=== PATIENT | female | born 1990 | race African-American/Black ===

== ENCOUNTER 2017-06-26 23:54 | Emergency (ER) | payer OTHER ==
[2017-06-27 00:36] LABS: URINE SOURCE CLEAN CATCH
[2017-06-27 00:39] LABS: URINE APPEARANCE CLOUDY; URINE BILIRUBIN NEG (NEG); URINE BLOOD 2+ (NEG); URINE COLOR YELLOW; URINE GLUCOSE NEG (NEG); URINE KETONE NEG (NEG); URINE LEUKOCYTE ESTERASE 2+ (NEG); URINE NITRATE NEG (NEG); URINE PROTEIN TRACE (NEG); URINE SPECIFIC GRAVITY 1.033 (1.003-1.035)
[2017-06-27 00:40] LABS: CULTURE INDICATED? YES; URBCS1 AUWI 25-50 /[HPF] (0-2); URINE BACTERIA AUWI 2+ (NEGATIVE); URINE SQUAMOUS EPITHELIAL CELL MANY /[HPF]; UWBCS1 AUWI 25-50 (0-5)
[2017-08-11] MEDS ORDERED: IMITREX PO (10:45)
== END 2017-06-27 03:18 | disposition home or self-care (01) ==
LOC: CED 23:54
PROVIDERS: Nurse Practitioner
DX: R51 Headache (principal); N39.0 Urinary tract infection, site not specified; I10 Essential (primary) hypertension; F17.210 Nicotine dependence, cigarettes, uncomplicated
CPT/HCPCS: 81003; 84703; 87086; 96361; 96374; 96375; 99283; J1200; J1885; J2765

== ENCOUNTER 2017-08-06 03:45 | Emergency (ER) | payer OTHER ==
[~2017-08-06] VITALS: Ht 152.4 cm; Wt 95.7 kg
--- NOTE | ~2017-08-06 | US67 ---
[facility] A Service of [facility] RADIOLOGY TEXT RESULTS PATIENT: DALIA MILLER LOCATION: [facility] : 86 UNIT #: [id number] AGE: [address]: Shailesh Diaz DO SEX: F ORDER DR: [id number] [address] [place], [place] [address] [id number] MR#: [id number] Acc #: [id number] NAME: DALIA MILELR : 1990 SEX: F STUDY DATE/TIME: 08/06/2017 8:45 UNIT: [facility] ROOM: STUDY DESCRIPTION: US Gallbladder Attending Physician: Shailesh Diaz D.O. Ordering Physician: Raymond Butler M.D. Primary Care Physician: No Primary Care Physician MEDICAL IMAGING REPORT This report is preliminary unless electronic signature is present EXAM Gallbladder ultrasound 08/06/2017 INDICATIONS Abdominal pain 2 weeks, hypertension. TECHNIQUE Sonographic imaging of the gallbladder was performed. We have no comparisons. FINDINGS Pancreas unremarkable to the extent visualized. The liver appears echogenic compared to the right kidney, suggestive of mild fatty infiltration. There is no focal liver mass, intrahepatic ductal dilatation or ascites. Liver measures 14.7 cm, long axis. Right kidney nonobstructed, measuring 9.4 cm, long axis. There are shadowing gallstones within the gallbladder. No gallbladder wall thickening, pericholecystic fluid or sonographic Tilley's sign described by the technologist. Extrahepatic common bile duct top-normal in diameter at about 5 mm. IMPRESSION 1. Cholelithiasis without additional ultrasound evidence of acute cholecystitis. 2. Common bile duct top-normal in diameter at 4-5 mm. 3. Probable mild fatty infiltration of the liver. Dictated by... Channing Conde M.D. [facility] A Service [facility] RADIOLOGY TEXT RESULTS PATIENT: DALIA MILLER LOCATION: [facility] : 86 UNIT #: [id number] AGE: [address]: Hottman,Shailesh M DO SEX: F ORDER DR: THIS IS AN ELECTRONICALLY VERIFIED REPORT Channing Conde M.D. at 08/07/2017 7:34 AM Mesha TD: 08/07/2017 06:59 JOB #: [id number] MEDICAL IMAGING REPORT Page 1 of 1 COPY
[2017-08-06] MEDS ORDERED: DESYREL100 MG PO (03:53)
[2017-08-06] MEDS ORDERED: VITAMIN D400 UNI2 PO (03:54)
[2017-08-06] MEDS ORDERED: PROPRANOLOL PO (03:54)
[2017-08-06 05:24] LABS: URINE SOURCE CLEAN CATCH
[2017-08-06 05:28] LABS: URINE APPEARANCE CLOUDY; URINE BILIRUBIN NEG (NEG); URINE BLOOD NEG (NEG); URINE COLOR YELLOW; URINE GLUCOSE NEG (NEG); URINE KETONE NEG (NEG); URINE LEUKOCYTE ESTERASE 1+ (NEG); URINE NITRATE NEG (NEG); URINE PROTEIN NEG (NEG); URINE SPECIFIC GRAVITY 1.032 (1.003-1.035)
[2017-08-06 05:31] LABS: URINE BACTERIA AUWI 1+ (NEGATIVE); URINE SQUAMOUS EPITHELIAL CELL MOD /[HPF]
[2017-08-06 05:35] LABS: BASOPHIL# 0.1 X10e3 (0-0.3); BASOPHIL% 0.8 % (0-2.5); EOSINOPHIL# 0.2 X10e3 (0-0.7); EOSINOPHIL% 1.7 % (0.0-7.0); HEMATOCRIT 39.5 % (35.0-45.0); LYMPHOCYTE# 2.9 X10e3 (1.0-3.5); LYMPHOCYTE% 27.2 % (17.0-45.0); MEAN CELL VOLUME 82.9 FL (83-96); MEAN CORPUSCULAR HEMOGLOBIN 27.4 PG (28-34); MEAN PLATELET VOLUME 8.2 FL (6.5-11.5); MONOCYTE# 0.7 X10e3 (0-1.0); MONOCYTE% 6.8 % (3.0-12.0); NEUTROPHIL# 6.7 X10e3 (1.5-7.1); NEUTROPHIL% 63.5 % (40-75); PLATELET COUNT 392 X10e3 (140-420); RED BLOOD COUNT 4.77 X10e (3.90-5.30); RED CELL DISTRIBUTION WIDTH 12.8 % (11.0-15.5); WHITE BLOOD COUNT 10.5 X10e3 (4.0-10.5)
[2017-08-06 05:41] LABS: DIFF IND NO
[2017-08-06 06:09] LABS: ALBUMIN SERUM 4.1 g/dL (3.5-5.0); ALKALINE PHOSPHATASE 66 U/L (32-92); ALT (SGPT) 17 U/L (10-40); AMYLASE 15 U/L (0-46); AST (SGOT) 15 U/L (10-42); BILIRUBIN, DIRECT <0.1 mg/dL (0.0-0.2); BILIRUBIN,INDIRECT 0.3 mg/dL (0.0-0.9); BILIRUBIN,TOTAL 0.4 mg/dL (0.2-2.0); BLOOD UREA NITROGEN 10 mg/dL (9-23); CALCIUM SERUM 9.1 mg/dL (8.4-10.2); CARBON DIOXIDE 27 mmol/L (22-31); CHLORIDE 104 mmol/L (100-111); CREATININE SERUM 0.8 mg/dL (0.6-1.4); GLOM FILT RATE Estimated 115.6 mL/min (>60); GLUCOSE FASTING 88 mg/dL (70-110); LIPASE 26 U/L (22-51); POTASSIUM 3.7 mmol/L (3.5-5.1); PROTEIN TOTAL SERUM 7.7 g/dL (6.0-8.3); SODIUM 139 mmol/L (135-145)
[2017-08-11] MEDS ORDERED: IMITREX PO (10:45)
== END 2017-08-06 09:49 | disposition home or self-care (01) ==
LOC: CED 03:45
PROVIDERS: Emergency Medicine
DX: K80.70 Calculus of gallbladder and bile duct without cholecystitis without obstruction (principal); I10 Essential (primary) hypertension
CPT/HCPCS: 36415; 76705; 80048; 80076; 81003; 82150; 83690; 84703; 85025; 96361; 96374; 96375; 99284; J1885; J2270; J2405